=== PATIENT | male | born 1995 | race Caucasian/White ===

== ENCOUNTER 2019-08-18 16:09 | Emergency (ER) | payer OTHER ==
[~2019-08-18] VITALS: Ht 195.6 cm; Wt 53.1 kg
[2019-08-18] MEDS ORDERED: MEDROLDOSEPACK PO (17:09)
[2019-08-18] MEDS ORDERED: CEPACOL SORE T1 EAC8 PO (17:09)
[2019-08-18 17:18] VITALS: BP 116/59
== END 2019-08-18 17:19 | disposition home or self-care (01) ==
LOC: ER 16:09
DX: J02.9 Acute pharyngitis, unspecified (principal)